=== PATIENT | female | born 1985 | race Caucasian/White ===

== ENCOUNTER 2021-10-10 11:13 | Emergency (ER) | payer BC, OTHER ==
[2021-10-10] MEDS ORDERED: KETOROLAC 15 MG/ML 1 ML VIAL IM STA (11:54)
[2021-10-10] MEDS ORDERED: DEXAMETHASONE SOD PHOSPHATE 10 MG/ML 1 ML VIAL IM STA (11:54)
[2021-10-10] MEDS ORDERED: ORPHENADRINE 30 MG/ML 2 ML VIAL IM STA (11:54)
[2021-10-10] MEDS ORDERED: IBUPROFEN 600 MG TAB PO STA (12:14)
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
--- NOTE | 2021-10-10 13:06 | XR ---
EXAM TYPE: LUMBAR SPINE X RAY SERIES COMPARISON: NONE HISTORY: Pain TECHNIQUE: 4 views are submitted. FINDINGS: Alignment is anatomic. The pedicles are intact. The transverse processes are intact. There is no s pondylolisthesis. Spina bifida occulta lumbosacral junction. IMPRESSION: 1. No acute process. Spina bifida occulta lumbosacral junction.
[2021-10-10 13:27] VITALS: BP 132/99; PULSE 87; RESP 14; TEMP 98
== END 2021-10-10 13:31 | disposition home or self-care (01) ==
LOC: EC 11:13
DX: M54.50 Low back pain, unspecified (principal); Y04.8XXA Assault by other bodily force, initial encounter; Y92.89 Other specified places as the place of occurrence of the external cause
CPT/HCPCS: 72100; 99284

== ENCOUNTER 2024-06-15 21:46 | Emergency (ER) | payer OTHER ==
[2024-06-15 21:55] VITALS: TEMP 97.7
[2024-06-15] MEDS: ONDANSETRON ODT 4 MG TAB PO STA (23:24)
--- NOTE | 2024-06-15 23:26 | ED ---
General Adult HPI - General Chief complaint: Shortness of Breath Stated complaint: [place], tightness in throat Time Seen by Provider: 06/15/24 22:01 Source: patient Mode of arrival: wheelchair Limitations: no limitations - History of Present Illness Initial comments: This patient is a 39-year-old woman who presents to have evaluation for what she states is a sensation as if there is a band around the base of her neck. She states that it feels like it is limiting her from taking a deep breath then. She states that it has come on over the course of the past day. Prior to that she has had some congestion, she has had mild cough, she has had about 6 episodes of vomiting over the prior 48 hours. The patient had gone to the [facility] emergency department, states that they had done exam they had done COVID swab and they gave her a nasal steroid to use. Patient has not noted fever or chills. No difficulty with speech or swallowing. Onset/Timin -: days(s) Location: neck Radiation: non-radiation Consistency: constant Improves with: none Worsens with: none Associated Symptoms: nausea/vomiting, other Treatments Prior to Arrival: other - Related Data Previous Rx's Medication Instructions Recorded predniSONE [Deltasone] 20 mg PO BID #8 tab 06/16/24 Allergies Allergy/AdvReac Type Severity Reaction Status Date / Time No Known Allergies Allergy Verified 06/15/24 21:55 Review of Systems ROS Statement: Those systems with pertinent positive or pertinent negative responses have been documented in the HPI. ROS Other: All systems not noted in ROS Statement are negative. Past Medical History Past Medical History: No Reported History History of Any Multi-Drug Resistant Organisms: None Reported Past Surgical History: EPS Additional Past Surgical History / Comment(s): dental surgery Past Psychological History: ADD/ADHD Smoking Status: Never smoker Past Alcohol Use History: None Reported, Occasional Past Drug Use History: None Reported General Exam Limitations: no limitations General appearance: alert, anxious Head exam: Present: atraumatic, normocephalic Eye exam: Present: normal appearance. Absent: scleral icterus, conjunctival injection ENT exam: Present: normal oropharynx, TM's normal bilaterally, normal external ear exam Neck exam: Present: normal inspection, full ROM. Absent: tenderness, meningismus, lymphadenopathy, thyromegaly Respiratory exam: Present: normal lung sounds bilaterally. Absent: respiratory distress, wheezes, rales, rhonchi, stridor, accessory muscle use Cardiovascular Exam: Present: regular rate, normal rhythm, normal heart sounds. Absent: systolic murmur, diastolic murmur, rubs, gallop GI/Abdominal exam: Present: soft. Absent: distended, tenderness, guarding, rebound, rigid, organomegaly, mass, pulsatile mass Extremities exam: Present: normal inspection, normal capillary refill. Absent: pedal edema, calf tenderness Back exam: Present: normal inspection. Absent: CVA tenderness (R), CVA tenderness (L) Neurological exam: Present: alert Skin exam: Present: warm, dry, intact, normal color. Absent: rash Course Vital Signs 06/15/24 06/15/24 06/16/24 21:51 23:26 01:00 Temperature 97.7 F 97.7 F Pulse Rate 130 H 81 66 Respiratory 28 H 16 16 Rate Blood Pressure 164/97 141/99 126/86 O2 Sat by Pulse 98 99 100 Oximetry EKG Findings - EKG Results: EKG: sinus rhythm (69 bpm ), normal axis, normal QRS, normal ST/T - [place], Pacemaker, Normal: Normal tracing: normal tracing Medical Decision Making - Medical Decision Making The patient had soft tissue neck x-rays that I interpreted as negative for narrowing of the airway, acute bony injury or other condition. Was pt. sent in by a medical professional or institution (JOHNNA Mchugh, SEARCH ENGINE OPTIMIZATION STRATEGIST, urgent care, hospital, or usp...) When possible be specific @ -[No] Did you speak to anyone other than the patient for history (EMS, parent, family, police, friend...)? What history was obtained from this source @ -[No] Did you review nursing and triage notes (agree or disagree)? Why? @ -[I reviewed and agree with nursing and triage notes] Were old charts reviewed (outside hosp., previous admission, EMS record, old EKG, old radiological studies, urgent care reports/EKG's, usp records)? Report findings @ -[No old charts were reviewed] Differential Diagnosis (chest pain, altered mental status, abdominal pain women, abdominal pain men, vaginal bleeding, weakness, fever, dyspnea, syncope, headache, dizziness, GI bleed, back pain, seizure, CVA, palpatations, mental health, musculoskeletal)? @ -[Differential Dyspnea: Coronary syndrome, arrhythmia, tamponade, asthma, COPD, pulmonary embolism, pneumonia, pneumothorax, pulmonary effusion, anaphylaxis, diabetic ketoacidosis, flailed chest, pulmonary contusion, diaphragmatic rupture, anemia, neuromuscular, this is not meant to be an all-inclusive list. EKG interpreted by me (3pts min.). @ -[As above] X-rays interpreted by me (1pt min.). @ -[I interpreted as above CT interpreted by me (1pt min.). @ -[None done] U/S interpreted by me (1pt. min.). @ -[None done] What testing was considered but not performed or refused? (CT, X-rays, U/S, labs)? Why? @ -[None] What meds were considered but not given or refused? Why? @ -[None] Did you discuss the management of the patient with other professionals (professionals i.e. , PA, SEARCH ENGINE OPTIMIZATION STRATEGIST, lab, RT, psych nurse, social worker assistant, chain forming machine operator, teacher, employment officer, caser in)? Give summary @ -[No] Was smoking cessation discussed for >3mins.? @ -[No] Was critical care preformed (if so, how long)? @ -[No] Were there social determinants of health that impacted care today? How? (Homelessness, low income, unemployed, alcoholism, drug addiction, transportation, low edu. Level, literacy, decrease access to med. care, intermediate, rehab)? @ -[No] Was there de-escalation of care discussed even if they declined (Discuss DNR or withdrawal of care, Hospice)? DNR status @ -[No] What co-morbidities impacted this encounter? (DM, HTN, Smoking, COPD, CAD, Cancer, CVA, ARF, Chemo, Hep., AIDS, mental health diagnosis, sleep apnea, morbid obesity)? @ -[None] Was patient admitted / discharged? Hospital course, mention meds given and route, prescriptions, significant lab abnormalities, going to OR and other pertinent info. @ -[Patient is a 39-year-old woman presenting with complaint of tight sensation in the neck. The physical exam and workup are benign. At this point patient stable to have close follow-up. Discussed appropriate further care and the return parameters Undiagnosed new problem with uncertain prognosis? @ -[No] Drug Therapy requiring intensive monitoring for toxicity (Heparin, Nitro, Insulin, Cardizem)? @ -[No] Were any procedures done? @ -[No] Diagnosis/symptom? @ -Acute pharyngitis Acute, or Chronic, or Acute on Chronic? @ -[Acute Uncomplicated (without systemic symptoms) or Complicated (systemic symptoms)? @ -[Uncomplicated Side effects of treatment? @ -[No] Exacerbation, Progression, or Severe Exacerbation? @ -[No] Poses a threat to life or bodily function? How? (Chest pain, [place], [place], pneumonia, PE, COPD, DKA, ARF, appy, cholecystitis, CVA, Diverticulitis, Homicidal, Suicidal, threat to staff... and all critical care pts) @ -[No] All treatments are based on ideal body weight as in ED triage - Lab Data Lab Results 06/15/24 Range/Units 23:42 Group A Strep (PCR) NOT DETECTED (Not Detectd) Disposition Clinical Impression: Pharyngitis Disposition: HOME SELF-CARE Condition: Good Instructions (If sedation given, give patient instructions): Pharyngitis (ED) Prescriptions: predniSONE [Deltasone] 20 mg PO BID #8 tab Is patient prescribed a controlled substance at d/c from ED?: No Referrals: Nonstaff,Physician [REFERRING] - 1-2 days Oumar Lucio DO [Doctor of Osteopathic Medicine] - 1-2 days
[2024-06-15 23:27] VITALS: RESP 16
[2024-06-15] MEDS: cloNIDine HCL 0.2 MG TAB PO STA (23:44)
[2024-06-16] MEDS: predniSONE 20 MG TAB PO STA (00:57)
[2024-06-16 01:02] VITALS: BP 126/86; PULSE 66
--- NOTE | 2024-06-16 01:26 | XR ---
EXAM: XR Soft Tissue Neck CLINICAL HISTORY: ITS.REASON XR Reason: pain TECHNIQUE: Frontal and lateral views of the soft tissues of the neck. COMPARISON: No relevant prior studies available. FINDINGS: Airway: Unremarkable. No abnormal narrowing. Bones/joints: Mild cervical kyphosis. No acute fracture. Soft tissues: There is prominence of the lingual tonsils. No abnormal soft tissue prominence. Normal epiglottis. IMPRESSION: Findings concerning for lingual tonsillitis. If there is continued clinical concern, a CT scan of the cervical soft tissues with contrast may be of benefit for further evaluation.
== END 2024-06-16 01:02 | disposition home or self-care (01) ==
LOC: EC 21:46
DX: J02.9 Acute pharyngitis, unspecified (principal)
CPT/HCPCS: 93005; 87651; 70360; 99285; J7512